=== PATIENT | female | born 1975 | race Caucasian/White ===

== ENCOUNTER 2016-11-16 19:00 | Emergency (ER) | payer OTHER ==
[2016-11-16 19:13] VITALS: BP 134/93; PULSE 63; TEMP 98.2; BMI 26.4
--- NOTE | 2016-11-16 19:21 | PDOC ---
History of Present Illness - History of Present Illness Initial Comments: 11/16/16 19:48 The patient is a 41 year old female, afebrile, with a significant past medical history of preeclampsia and hyperthyroid (taking levothyroxine 75mg), who presents to the emergency department for bumps at the back of the tongue for 3 days. The patient denies a sore throat or difficulty swallowing. She reports seeing a package line relief operator who told her she had an increased white blood cell count of 11.2 and prescribed Pantoprazole (40 mg QD). She states she was referred to see a GI specialist s/p discharge on medrol dose pack from an ER in [place] for chest pain, nausea and a rash on October 15, 2016. She denies any chest pain, rash, or nausea at this time. She states she is here to have the white blood cell count checked as per direction from the package line relief operator. The patient states she has an appointment for endoscopy next month. She denies chest pain, shortness of breath, headache and dizziness. She denies fever, chills, nausea, vomit, diarrhea and constipation. She denies dysuria, frequency, urgency and hematuria. Allergies: NKDA Past surgical history: cesarian (10/13/2014), hernia repair (age 5) Social history: former tobacco use ( pack for 2 years, 6 years ago) PCP - Dr. Lr <Ela Hall - Last Filed: 11/16/16 19:48> <Ashley Goodrich - Last Filed: 11/17/16 01:14> - General Chief Complaint: Sore Throat Stated Complaint: BUMPS ON BACK OF THROAT Time Seen by Provider: 11/16/16 19:16 Past History <Ela Hall - Last Filed: 11/16/16 19:48> - Past Medical History HTN: Yes Thyroid Disease: Yes - Psycho/Social/Smoking Cessation Hx Anxiety: No Suicidal Ideation: No Smoking History: Never smoked Have you smoked in the past 12 months: No Number of Cigarettes Smoked Daily: 0 Hx Alcohol Use: Yes (OCCASIONAL) Drug/Substance Use Hx: No Substance Use Type: None <Ashley Goodrich - Last Filed: 11/17/16 01:14> - Past Medical History Allergies/Adverse Reactions: Allergies Allergy/AdvReac Type Severity Reaction Status Date / Time doxycycline Allergy Unknown Verified 11/16/16 19:14 Home Medications: Ambulatory Orders Levothyroxine [Synthroid -] 75 mcg PO DAILY 11/16/16 Pantoprazole Sodium [Protonix] 40 mg PO DAILY PRN 11/16/16 Review of Systems - Review of Systems Able to Perform ROS?: Yes Comments:: 11/16/16 19:49 CONSTITUTIONAL: Absent: fever, no chills, no fatigue EYES: Absent: visual changes ENT: (+) bumps to posterior tongue. Absent: ear pain, no sore throat CARDIOVASCULAR: Absent: chest pain, no palpitations RESPIRATORY: Absent: cough, no SOB GI: Absent: abdominal pain, no nausea, no vomiting, no constipation, no diarrhea GENITOURINARY: Absent: dysuria, no frequency, no hematuria MUSKULOSKELETAL: Absent: back pain, no arthralgia, no myalgia SKIN: Absent: rash NEURO: Absent: headache <Ela Hall - Last Filed: 11/16/16 19:48> *Physical Exam - Vital Signs Last Vital Signs Temp Pulse Resp BP Pulse Ox 98.2 F 63 15 134/93 99 11/16/16 19:04 11/16/16 19:04 11/16/16 19:04 11/16/16 19:04 11/16/16 19:04 - Physical Exam Comments: 11/16/16 19:50 GENERAL: The patient is awake, alert, and fully oriented, in no acute distress. HEAD: Normal with no signs of trauma. EYES: Pupils equal, round and reactive to light, extraocular movements intact, sclera anicteric, conjunctiva clear with no pallor. ENT: Ears normal, nares patent, oropharynx clear without exudates. Moist mucous membranes. NECK: Normal range of motion, supple without lymphadenopathy, JVD, or masses. LUNGS: Breath sounds equal, clear to auscultation bilaterally. No wheeze/ crackles. HEART: Regular rate and rhythm, normal S1 and S2 without murmur or rub. ABDOMEN: Soft/nontender/nondistended. BS wnl. No guarding or rebound. No palpable masses. No hepatosplenomegaly. EXTREMITIES: Normal range of motion, no edema. No clubbing or cyanosis. No cords , erythema, or tenderness. NEUROLOGICAL: Cranial nerves II through XII grossly intact. Normal speech, normal gait. PSYCH: Normal mood, normal affect. SKIN: Warm, Dry, normal turgor, no rashes or lesions noted. <Ela Hall - Last Filed: 11/16/16 19:48> - Vital Signs Last Vital Signs Temp Pulse Resp BP Pulse Ox 98.2 F 63 15 134/93 99 11/16/16 19:04 11/16/16 19:04 11/16/16 19:04 11/16/16 19:04 11/16/16 19:04 <Ashley Goodrich - Last Filed: 11/17/16 01:14> Medical Decision Making - Medical Decision Making Documentation has been prepared under my direction and personally reviewed by me in its entirety. I attest that this documented accurately reflects all work, treatment, procedures and medical decision making performed by me. As noted above, this 41-year-old woman presents for evaluation of "bumps" in the posterior portion of her tongue. Patient noted this today and has not had no pain or other symptoms related to them. She had inspected the area closely because of a recent dental cleaning. Of note, the patient had received follow- up letter in the last few days from her package line relief operator noting that her white blood cell count was 11,200. This was seen on CBC taken during her gastroenterology appointment. Follow-up CBC was recommended. Patient specifically asked if CBC could be drawn. Exam as noted. There is no pathology evident with "bumps" being normal circumvallate taste buds. No evidence of pharyngitis/tonsillitis or other current inflammatory/infectious process. Since patient has no acute processes currently, CBC will not be drawn during this ER visit. Patient was reassured that the white blood cell count of 11,200 was not markedly elevated, although she should have the test repeated as per her package line relief operator recommendation. The patient has an internet media planner(Dr. Lr)but no general doctor. She asked for local general doctor and Dr. Vences referral information will be given to her. She should follow-up with one of these doctors in the near future. If she has any new severe symptoms, she should return to ER. <Ashley Goodrich - Last Filed: 11/17/16 01:14> *DC/Admit/Observation/Transfer - Attestations Scribe Attestion: 11/16/16 19:50 Documentation prepared by Ela Hall, acting as medical advisor for Ashley Goodrich MD <Ela Hall - Last Filed: 11/16/16 19:48> <Ashley Goodrich - Last Filed: 11/17/16 01:14> Diagnosis at time of Disposition: Hyperthyroidism - Discharge Dispostion Disposition: HOME Condition at time of disposition: Stable - Referrals Referrals: Bang Vences MD [Staff Physician] - 1 week - Patient Instructions Additional Instructions: Follow-up with Dr. Lr or Dr. Vences( general doctor) within one week Return to ER if you have fever/new rash/sore throat or cough
== END 2016-11-16 20:18 | disposition home or self-care (01) ==
LOC: FER 19:00
DX: E05.90 Thyrotoxicosis, unspecified without thyrotoxic crisis or storm (principal)
CPT/HCPCS: 99281-25

== ENCOUNTER 2016-11-24 21:33 | Emergency (ER) | payer OTHER ==
[2016-11-24 21:48] VITALS: BP 151/98; PULSE 69; TEMP 97.9; BMI 26.4
--- NOTE | 2016-11-24 22:02 | PDOC ---
History of Present Illness - General History Source: Patient Exam Limitations: No Limitations - History of Present Illness Initial Comments: 11/24/16 22:04 The patient is a 41 year old female, afebrile, with a significant past medical history of preeclampsia and hyperthyroid (taking levothyroxine 75mg), who presents to the emergency department for diffuse itching. Patient states that her warehouse operator gave her prednisone medication that helped her with her itching. She denies any obvious rash or hives. PAST MEDICAL HISTORY: no significant history PAST SURGICAL HISTORY: no significant history FAMILY HISTORY: no pertinent history SOCIAL HISTORY: Pt lives with family and is employed. MEDICATIONS: reviewed ALLERGIES: As per nursing notes General: No fevers or chills, no weakness, no weight loss HEENT: No change in vision. No sore throat, No ear pain CardioVascular: No chest pain or shortness of breath Respiratory:No cough, or wheezing. Gastrointestinal: no nausea, vomiting, diarrhea or constipation, No rectal bleeding Genitourinary: No dysuria, hematuria, or frequency Musculoskeletal: No joint or muscle pain or swelling Neurologic: No headache, vertigo, dizziness or loss of consciousness Psychiatric: nor depression Skin: (+)itching. No rashes or easy bruising Endocrine: no increased thirst or abnormal weight change Allergic: no skin or latex allergy All other systems reviewed and normal GENERAL: The patient is awake, alert, and fully oriented, in no acute distress. HEAD: Normal with no signs of trauma. EYES: Pupils equal, round and reactive to light, extraocular movements intact, sclera anicteric, conjunctiva clear. EXTREMITIES: Normal range of motion, no edema. NEUROLOGICAL: Normal speech, normal gait. PSYCH: Normal mood, normal affect. SKIN: Warm, Dry, normal turgor, no rashes or lesions noted. Documentation prepared by LEANDRA Bustmaante, acting as medical supply technician for Teresa Hwang MD. <Radha Suero - Last Filed: 11/24/16 22:04> - General History Source: Patient Exam Limitations: No Limitations <Teresa Hwang I - Last Filed: 11/24/16 22:13> - General Chief Complaint: Rash Stated Complaint: RASH Time Seen by Provider: 11/24/16 21:34 Past History <Radha Suero - Last Filed: 11/24/16 22:04> - Past Medical History Disorders: Yes (REFLUX) HTN: Yes Thyroid Disease: Yes - Psycho/Social/Smoking Cessation Hx Anxiety: No Suicidal Ideation: No Smoking History: Never smoked Have you smoked in the past 12 months: No Number of Cigarettes Smoked Daily: 0 Hx Alcohol Use: Yes (OCCASIONAL) Drug/Substance Use Hx: No Substance Use Type: None <Teresa Hwang I - Last Filed: 11/24/16 22:13> - Past Medical History Allergies/Adverse Reactions: Allergies Allergy/AdvReac Type Severity Reaction Status Date / Time doxycycline Allergy Unknown Verified 11/16/16 19:14 Home Medications: Ambulatory Orders Levothyroxine [Synthroid -] 75 mcg PO DAILY 11/16/16 Pantoprazole Sodium [Protonix] 40 mg PO DAILY PRN 11/16/16 Prednisone [Deltasone -] 40 mg PO DAILY #8 tablet 11/24/16 *Physical Exam - Vital Signs Last Vital Signs Temp Pulse Resp BP Pulse Ox 97.9 F 69 16 151/98 100 11/24/16 21:43 11/24/16 21:43 11/24/16 21:43 11/24/16 21:43 11/24/16 21:43 <Radha Suero - Last Filed: 11/24/16 22:04> - Vital Signs Last Vital Signs Temp Pulse Resp BP Pulse Ox 97.9 F 69 16 151/98 100 11/24/16 21:43 11/24/16 21:43 11/24/16 21:43 11/24/16 21:43 11/24/16 21:43 <Teresa Hwang I - Last Filed: 11/24/16 22:13> *DC/Admit/Observation/Transfer <Radha Suero - Last Filed: 11/24/16 22:04> - Discharge Dispostion Admit: No <Teresa Hwang I - Last Filed: 11/24/16 22:13> Diagnosis at time of Disposition: Urticaria - Discharge Dispostion Disposition: HOME Condition at time of disposition: Stable - Prescriptions Prescriptions: Prednisone [Deltasone -] 40 mg PO DAILY #8 tablet - Patient Instructions Additional Instructions: Take prednisone 2 tablets a day for the next 4 days in addition to that you can get [id number] Gilda or Claritin and take as directed on the box. Follow-up with an actuarial trainee for ALLERGY testing to see if you can determine what causing the itching Return to the emergency department immediately with ANY new, persistent or worsening symptoms. Continue any medications as previously prescribed by your physician. You should follow up with your primary doctor as soon as possible regarding today's emergency department visit. . Please make sure your doctor reviews the results of your emergency evaluation. Thank you for coming to the Emergency Department today for your care. It was a pleasure to see you today. Please note that your evaluation is INCOMPLETE until you follow-up with your doctor.
[2016-11-24] MEDS ORDERED: DEXAMETHASONE SOD PHOSPHATE 10 MG/1 ML VIAL IM ONE (22:05)
[2016-11-24] MEDS ORDERED: DEXAMETHASONE SOD PHOSPHATE 10 MG/1 ML VIAL ONE (22:08)
[2016-11-24] MEDS ORDERED: LORATADINE 10 MG TABLET PO ONE (22:11)
[2016-11-24] MEDS ORDERED: LORATADINE 10 MG TABLET ONE (22:15)
== END 2016-11-24 22:20 | disposition home or self-care (01) ==
LOC: FER 21:33
PROC: 3E023GC Introduction of Other Therapeutic Substance into Muscle, Percutaneous Approach (ICD-10-PCS; principal; 2016-11-24)
DX: L50.9 Urticaria, unspecified (principal); E05.90 Thyrotoxicosis, unspecified without thyrotoxic crisis or storm; I10 Essential (primary) hypertension; K21.9 Gastro-esophageal reflux disease without esophagitis
CPT/HCPCS: 99281-25

== ENCOUNTER 2017-06-20 21:02 | Emergency (ER) | payer OTHER ==
[2017-06-20 21:20] VITALS: BMI 26.8
--- NOTE | 2017-06-20 22:29 | PDOC ---
History of Present Illness - General Chief Complaint: Nausea/Vomiting Stated Complaint: VOMITING FOR 5-6 HOURS Time Seen by Provider: 06/20/17 22:03 History Source: Patient Exam Limitations: No Limitations - History of Present Illness Initial Comments: 06/20/17 22:40 This is a 41-year-old female brought in by her and 2 children for evaluation of nausea vomiting. As per patient her 2 children have also been vomiting over the last couple a days. Patient denies any abdominal pain at this pain times but said there was some initially some crampy abdominal pain. Patient denies any fevers. Patient is otherwise healthy. PAST MEDICAL HISTORY: no significant history PAST SURGICAL HISTORY: no significant history FAMILY HISTORY: no pertinant history SOCIAL HISTORY: Pt lives with family and is employed. MEDICATIONS: reviewed ALLERGIES: As per nursing notes Review of Systems General: No fevers or chills, no weakness, no weight loss HEENT: No change in vision. No sore throat,. No ear pain CardioVascular: No chest pain or shortness of breath Respiratory:No cough, or wheezing. Gastrointestinal: no nausea, vomitting, diarrhea or constipation, No rectal bleeding Genitourinary: No dysuria, hematuria, or frequency Musculoskeletal: No joint or muscle pain or swelling Neurologic: No headache, vertigo, dizziness or loss of consciousness Psychiatric: nor depression Skin: No rashes or easy bruising Endocrine: no increased thirst or abnormal weight change Allergic: no skin or latex allergy All other systems reviewed and normal Exam: General: Well-nourished well-developed individual, no acute distress, mucous membranes are dry HEENT: Throat: Normal, tonsils normal, no erythema or exudate Neck: Supple, no meningeal signs, no lymphadenopathy Eyes::Pupils equal reactive and round, extraocular motion intact Chest: Nontender to palpation Cardiac: S1-S2 normal, regular rate and rhythm, no murmurs rubs or gallops Respiratory: Lungs clear to auscultation bilateral Abdomen: Soft, nondistended, normal bowel sounds, nontender to palpation diffusely Extremities: Warm, dry, no cyanosis, clubbing, or edema Skin: No rashes Neuro: Alert and oriented x3, CN II - XII intact, nonfocal exam with normal strength, normal sensation, normal reflexes, normal gait, Psych: Normal mood and affect Medical decision making this is a 41-year-old female with vomiting and dehydration. Patient symptoms are consistent with the normal virus reaches circulating throughout the community in both of her children appear to have had similar symptoms recently Will give Zofran and hydrate patient with a minimum of 2 L of IV fluid Once patient is well-hydrated and able to tolerate by mouth's will discharged home 06/20/17 23:49 Reassessment patient has finished almost 1 L of fluid says she feels slightly better. There has been no further vomiting in the ED. 01:00 Patient has no further vomiting, patient now well-hydrated post 2 L of fluid. Patient discharged home. Prescription sent to patient's pharmacy. Past History - Past Medical History Allergies/Adverse Reactions: Allergies Allergy/AdvReac Type Severity Reaction Status Date / Time doxycycline Allergy Unknown Verified 06/20/17 21:05 Home Medications: Ambulatory Orders Levothyroxine [Synthroid -] 50 mcg PO DAILY 06/20/17 Ondansetron [Zofran Odt -] 4 mg SL TID #12 od.tablet 06/21/17 COPD: No Disorders: Yes (REFLUX) HTN: Yes Thyroid Disease: Yes - Suicide/Smoking/Psychosocial Hx Smoking History: Never smoked Have you smoked in the past 12 months: No Number of Cigarettes Smoked Daily: 0 Information on smoking cessation initiated: No Hx Alcohol Use: No Drug/Substance Use Hx: No Substance Use Type: None *Physical Exam - Vital Signs Last Vital Signs Temp Pulse Resp BP Pulse Ox 98.5 F 100 H 18 124/83 97 06/20/17 21:03 06/20/17 21:03 06/20/17 21:03 06/20/17 21:03 06/20/17 21:03 *DC/Admit/Observation/Transfer Diagnosis at time of Disposition: Dehydration Nausea and vomiting Qualifiers: Vomiting type: unspecified Vomiting Intractability: non-intractable Qualified Code(s): R11.2 - Nausea with vomiting, unspecified - Discharge Dispostion Disposition: HOME - Prescriptions Prescriptions: Ondansetron [Zofran Odt -] 4 mg SL TID #12 od.tablet - Referrals - Patient Instructions Printed Discharge Instructions: DI for Vomiting -- Adult Additional Instructions: Clear liquids only for the next 6 hours.. For nausea or vomiting takes Zofran 1 sublingual tablet as often as every 6-8 hours if needed After that if you have had no further vomiting you may have bananas, rice, applesauce, or toast. If no further vomiting for another 8 hours you may have regular food. If you vomit again then nothing to eat or drink for 2 hours. then start back with the clear liquids. Return to the emergency department immediately with ANY new, persistent or worsening symptoms. You MUST call and follow up with your doctor tomorrow if not better. Please make sure your doctor reviews the results of your emergency evaluation. - Post Discharge Activity
[2017-06-20] MEDS ORDERED: SODIUM CHLORIDE 1,000 ML IV ONE ×2 (22:31→23:05)
[2017-06-20] MEDS ORDERED: ONDANSETRON 4 MG/2 ML VIAL IVPB ONE (22:32)
[2017-06-20] MEDS ORDERED: ONDANSETRON 4 MG/2 ML VIAL ONE (22:56)
[2017-06-21 00:53] VITALS: BP 99/59; PULSE 82; TEMP 99.2
== END 2017-06-21 01:27 | disposition home or self-care (01) ==
LOC: FER 21:02
PROC: 3E033GC Introduction of Other Therapeutic Substance into Peripheral Vein, Percutaneous Approach (ICD-10-PCS; principal; 2017-06-20)
PROC: 3E0337Z Introduction of Electrolytic and Water Balance Substance into Peripheral Vein, Percutaneous Approach (ICD-10-PCS; 2017-06-20)
DX: E86.0 Dehydration (principal); R11.2 Nausea with vomiting, unspecified; I10 Essential (primary) hypertension; K21.9 Gastro-esophageal reflux disease without esophagitis; E07.9 Disorder of thyroid, unspecified
CPT/HCPCS: 99282-25

== ENCOUNTER 2017-06-29 14:50 | Emergency (ER) | payer OTHER ==
[2017-06-29 15:15] VITALS: BP 119/78; PULSE 90; BMI 26.8
[2017-06-29] MEDS ORDERED: ACETAMINOPHEN 1000 MG/100 ML VIAL (NON FORMULARY) IVPB ONE (16:21)
[2017-06-29] MEDS ORDERED: SODIUM CHLORIDE 1,000 ML IV STA (16:21)
[2017-06-29] MEDS ORDERED: METOCLOPRAMIDE HCL INJECTION 10 MG/2 ML VIAL IVPUSH ONE (16:22)
--- NOTE | 2017-06-29 16:23 | PDOC ---
History of Present Illness - History of Present Illness Initial Comments: 06/29/17 16:28 Patient is a 41F with PMHx of preeclampsia and hyperthyroidism, who presents today for headache and flu-like symptoms for 2 days. Patient states that she was here last week for a stomach virus. Her symptoms seemed to have resolved and then two days ago she began to experience a cold, cough, fever, and body aches. Around 2 am this morning she started experiencing an acute sudden onset headache that she describes as constant, throbbing. She admits to trouble opening her eyes due to her headache and states that she feels dizzy when she does open them. She took 2 Aleve for the pain 2.5 hours ago, with no relief. She also reports generalized weakness and nausea. She is currently menstruating. Denies any chance of . She denies abdominal pain, vomitting, and diarrhea. Allergies: NKDA Past surgical history: (10/13/2014), hernia repair (age 5) Social history: former tobacco use ( pack for 2 years, 7 years ago) PCP - Dr. rL <Sharyn Torres - Last Filed: 06/29/17 18:42> <Diego Elise - Last Filed: 06/29/17 19:19> - General Chief Complaint: Cold Symptoms Stated Complaint: FLU Time Seen by Provider: 06/29/17 15:40 Past History <Sharyn Torres - Last Filed: 06/29/17 18:42> - Past Medical History COPD: No Disorders: Yes (REFLUX) HTN: Yes Thyroid Disease: Yes - Suicide/Smoking/Psychosocial Hx Smoking History: Never smoked Have you smoked in the past 12 months: No Number of Cigarettes Smoked Daily: 0 Hx Alcohol Use: No Drug/Substance Use Hx: No Substance Use Type: None <Diego Elise - Last Filed: 06/29/17 19:19> - Past Medical History Allergies/Adverse Reactions: Allergies Allergy/AdvReac Type Severity Reaction Status Date / Time doxycycline Allergy Unknown Verified 06/20/17 21:05 Home Medications: Ambulatory Orders Levothyroxine [Synthroid -] 50 mcg PO DAILY 06/20/17 Ondansetron [Zofran Odt -] 4 mg SL TID #12 od.tablet 06/21/17 Ibuprofen 800 mg PO TID PRN #30 tablet 06/29/17 Metoclopramide HCl [Reglan -] 10 mg PO QID PRN #24 tablet 06/29/17 Review of Systems - Review of Systems Comments:: 06/29/17 16:28 CONSTITUTIONAL: Present: Fever, body aches, Generalized Weakness, Absent: Malaise, Loss of Appetite, diaphoresis. HEENT: Present: rhinnorhea, eye pain, Absent:Throat Pain, Throat Swelling, Difficulty Swallowing, Mouth Swelling, Ear Pain, Visual Changes CARDIOVASCULAR: Absent: Chest Pain, Syncope, Palpitations, Irregular Heart Rate, Lightheadedness , Peripheral Edema RESPIRATORY: Present: cough Absent: Shortness of Breath, SOB with Exertion, Orthopnea, Wheezing, Stridor, Hemoptysis GASTROINTESTINAL: Present: nausea Absent: Abdominal pain, Abdominal Distension, Vomiting, Diarrhea, Constipation, Melena, Hematochezia GENITOURINARY: Absent: Dysuria, Frequency, Urgency, Hesitancy, Flank Pain, Genital Pain MUSCULOSKELETAL: Absent: Myalgia, Arthralgia, Joint Swelling, Back pain, Neck Pain SKIN: Absent: Rash, Itching, Pallor HEMATOLOGIC/IMMUNOLOGIC: Absent: Easy Bleeding, Easy Bruising, Lymphadenopathy, Frequent infections ENDOCRINE: Absent: Unexplained Weight Gain, Unexplained Weight Loss, Heat Intolerance, Cold Intolerance NEUROLOGIC: Present: headache, vertigo Absent: Focal Weakness, Paresthesias, Unsteady Gait, Seizure, Mental Status Changes, Incontinence PSYCHIATRIC: Absent: Anxiety, Depression <Sharyn Torres - Last Filed: 06/29/17 18:42> *Physical Exam - Vital Signs Last Vital Signs Temp Pulse Resp BP Pulse Ox 100.5 F H 90 17 119/78 100 06/29/17 15:05 06/29/17 15:05 06/29/17 15:05 06/29/17 15:05 06/29/17 15:05 - Physical Exam Comments: 06/29/17 18:42 GENERAL: The patient is awake, alert, and fully oriented. Uncomfortable appearing. HEAD: Normal with no signs of trauma. EYES: Pupils equal, round and reactive to light, extraocular movements intact, sclera anicteric, conjunctiva clear. ENT: Ears normal, nares patent, oropharynx clear without exudates. Moist mucous membranes. NECK: No meningismus. Normal range of motion, supple without lymphadenopathy, JVD, or masses. LUNGS: Breath sounds equal, clear to auscultation bilaterally. No wheezes, and no crackles. HEART: Regular rate and rhythm, normal S1 and S2 without murmur, rub or gallop. ABDOMEN: Soft, nontender, normoactive bowel sounds. No guarding, no rebound. No masses. EXTREMITIES: Normal range of motion, no edema. No clubbing or cyanosis. No cords , erythema, or tenderness. NEUROLOGICAL: Cranial nerves II through XII grossly intact. Normal speech, normal gait. PSYCH: Normal mood, normal affect. SKIN: Warm, Dry, normal turgor, no rashes or lesions noted. <Sharyn Torres - Last Filed: 06/29/17 18:42> - Vital Signs Last Vital Signs Temp Pulse Resp BP Pulse Ox 100.5 F H 90 17 119/78 100 06/29/17 15:05 06/29/17 15:05 06/29/17 15:05 06/29/17 15:05 06/29/17 15:05 <Diego Elise - Last Filed: 06/29/17 19:19> ED Treatment Course - LABORATORY CBC & Chemistry Diagram: 06/29/17 16:45 06/29/17 16:45 <Sharyn Torres - Last Filed: 06/29/17 18:42> - LABORATORY CBC & Chemistry Diagram: 06/29/17 16:45 06/29/17 16:45 <Diego Elise - Last Filed: 06/29/17 19:19> Medical Decision Making - Medical Decision Making 06/29/17 19:13 Patient is a 41-year-old woman who presents complaining of stomach virus symptoms a few days ago which seemed to be resolving, but now with 24 hours of fever, chills, and bilateral temporal throbbing headache. There is no photophobia. There is no neck stiffness. She also complains of nausea. On examination, she has no photophobia or meningismus. Her lungs are clear. Her heart is regular rhythm. Her abdomen is benign. Her skin is without rash. Laboratory studies reviewed: CBC is normal. Hemoglobin is normal. She has mild hyponatremia, but she was given 1 L of IV normal saline. She is taking oral fluids well in the emergency department. After Benadryl, Reglan, and IV acetaminophen, her headache is much better. Repeat examination continues to reveal no photophobia or meningeal signs. Impression: Viral syndrome with headache. Laboratory Results - last 24 hr 06/29/17 06/29/17 06/29/17 16:45 16:45 18:19 WBC 3.7 L RBC 4.30 Hgb 12.7 Hct 36.1 MCV 84.0 MCH 29.4 MCHC 35.0 RDW 12.6 Plt Count 316 MPV 7.2 L Neutrophils % 79.4 Lymphocytes % 7.7 L Monocytes % 11.7 H Eosinophils % 0.2 Basophils % 1.0 Sodium 133 L Potassium 3.4 L Chloride 101 Carbon Dioxide 26 Anion Gap 6 L BUN 13 Creatinine 1.0 Creat Clearance w eGFR > 60 Random Glucose 94 Calcium 8.8 Total Bilirubin 0.5 AST 14 ALT 14 Alkaline Phosphatase 46 Total Protein 7.4 Albumin 4.5 Urine Color Yellow Urine Appearance Slightly Urine pH 6.0 Ur Specific [place] 1.010 Urine Protein Negative Urine Glucose (UA) Negative Urine Ketones 2+ H Urine Blood 3+ H Urine Nitrite Negative Urine Bilirubin Negative Urine Urobilinogen 0.2 Ur Leukocyte Esterase Trace H Urine RBC >100 Urine WBC 3-5 Ur Epithelial Cells 3-5 Urine HCG, Qual Negative 06/29/17 19:19 The scribe's documentation has been prepared under my direction and personally reviewed by me in its entirety. I have confirmed that the note above accurately reflects all work, treatment, procedures, and medical decision- making performed by me. <Diego Elise - Last Filed: 06/29/17 19:19> *DC/Admit/Observation/Transfer - Attestations Scribe Attestion: 06/29/17 16:31 Documentation prepared by Sharyn Torres, acting as medical stenographer for Diego Elise MD. <Sharyn Torres - Last Filed: 06/29/17 18:42> - Discharge Dispostion Admit: No <Diego Elise - Last Filed: 06/29/17 19:19> Diagnosis at time of Disposition: Viral infection Headache Qualifiers: Headache type: unspecified Headache chronicity pattern: acute headache Intractability: not intractable Qualified Code(s): R51 - Headache - Discharge Dispostion Disposition: HOME Condition at time of disposition: Good - Prescriptions Prescriptions: Ibuprofen 800 mg PO TID PRN #30 tablet PRN Reason: headache, pain or fever Metoclopramide HCl [Reglan -] 10 mg PO QID PRN #24 tablet PRN Reason: nausea or headache - Patient Instructions Printed Discharge Instructions: DI for Viral Upper Respiratory Infection -- Adult Additional Instructions: You were evaluated today for fever and headache. The blood tests were normal. The diagnosis is a viral infection with headache. Take ibuprofen and Reglan as needed for headache. Drink plenty of fluids. Follow-up with her primary care physician. Return to the emergency department for any severe or progressive symptoms.
[2017-06-29] MEDS ORDERED: ACETAMINOPHEN INJECTION 100 ML IVPB ONE (16:25)
[2017-06-29 17:04] LABS: EOS % 0.2 % (0-4.5); HEMATOCRIT 36.1 % (32.4-45.2); HEMOGLOBIN 12.7 GM/dl (10.7-15.3); LYMPH % 7.7 % (8-40); MCH 29.4 pg (25.7-33.7); MEAN PLT VOLUME 7.2 fl (7.5-11.1); MONO % 11.7 % (3.8-10.2); NEUT % 79.4 % (42.8-82.8); PLATELET COUNT 316 K/MM3 (134-434); RDW 12.6 % (11.6-15.6); WHITE BLOOD COUNT 3.7 K/mm3 (4.0-10.8)
[2017-06-29 17:15] LABS: ALBUMIN 4.5 g/dl (3.5-5.0); ALK PHOS 46 U/L (32-92); ANION GAP 6 (8-16); BLOOD UREA NITROGEN 13 mg/dl (7-18); CALCIUM 8.8 mg/dl (8.4-10.2); CHLORIDE 101 mmol/L (98-107); CO2 26 mmol/L (22-28); GLUCOSE,RANDOM 94 mg/dl (74-106); POTASSIUM 3.4 mmol/L (3.5-5.1); SGOT/AST 14 U/L (10-42); SGPT/ALT 14 U/L (10-40); SODIUM 133 mmol/L (136-145); TOT PROT 7.4 g/dl (6.4-8.3)
[2017-06-29 17:28] LABS: BILIRUBIN,TOTAL 0.5 mg/dl (0.2-1.0)
[2017-06-29 18:19] VITALS: TEMP 99.9
[2017-06-29 18:24] LABS: URINE APPEARANCE Slightly; URINE BILIRUBIN Negative (NEGATIVE); URINE BLOOD 3+ (NEGATIVE); URINE COLOR YELLOW; URINE GLUCOSE (UA) Negative (NEGATIVE); URINE KETONE 2+ (NEGATIVE); URINE LEUK ESTERASE TRACE (NEGATIVE); URINE NITRITE Negative (NEGATIVE); URINE PROTEIN Negative (NEGATIVE); URINE UROBILINOGEN 0.2 (0.2-1.0)
[2017-06-29 18:25] LABS: HCG,QUALITATIVE URINE NEGATIVE
[2017-06-29 18:40] LABS: URINE RBC >100 /hpf (0-3)
[2017-06-29] MEDS ORDERED: IBUPROFEN 600 MG TABLET (FP) PO ONE ×2 (19:39→19:44)
[2017-06-29] MEDS ORDERED: METOCLOPRAMIDE HCL 10 MG TABLET (FP) PO ONE ×2 (19:39→19:44)
== END 2017-06-29 19:51 | disposition home or self-care (01) ==
LOC: FER 14:50
PROC: 3E033NZ Introduction of Analgesics, Hypnotics, Sedatives into Peripheral Vein, Percutaneous Approach (ICD-10-PCS; principal; 2017-06-29)
PROC: 3E033GC Introduction of Other Therapeutic Substance into Peripheral Vein, Percutaneous Approach (ICD-10-PCS; 2017-06-29)
PROC: 3E0337Z Introduction of Electrolytic and Water Balance Substance into Peripheral Vein, Percutaneous Approach (ICD-10-PCS; 2017-06-29)
DX: B34.9 Viral infection, unspecified (principal); R51 Headache; I10 Essential (primary) hypertension; K21.9 Gastro-esophageal reflux disease without esophagitis
CPT/HCPCS: 36415; 80053; 81003; 81015; 84703; 85025; 99282-25

== ENCOUNTER 2020-08-20 18:44 | Emergency (ER) | payer OTHER ==
[2020-08-20 19:05] VITALS: BP 140/90; PULSE 77; TEMP 99.2; BMI 26.4
== END 2020-08-20 19:54 | disposition home or self-care (01) ==
LOC: FER 18:44
DX: M79.672 Pain in left foot (principal)
CPT/HCPCS: 73630-TC-LT; 99284-25

== ENCOUNTER 2020-12-15 23:19 | Emergency (ER) | payer OTHER ==
[2020-12-15 23:33] VITALS: BP 155/95; PULSE 62; TEMP 98.2; BMI 28.3
[2020-12-15] MEDS ORDERED: DEXAMETHASONE SOD PHOSPHATE 10 MG/1 ML VIAL IVPUSH ONE (23:53)
[2020-12-15] MEDS ORDERED: DEXAMETHASONE SOD PHOSPHATE 10 MG/1 ML VIAL IM ONE (23:54)
[2020-12-16] MEDS ORDERED: DEXAMETHASONE SOD PHOSPHATE 10 MG/1 ML VIAL ONE (00:04)
== END 2020-12-16 00:15 | disposition home or self-care (01) ==
LOC: FER 23:19
PROC: 3E033NZ Introduction of Analgesics, Hypnotics, Sedatives into Peripheral Vein, Percutaneous Approach (ICD-10-PCS; principal; 2020-12-15)
PROC: 3E023NZ Introduction of Analgesics, Hypnotics, Sedatives into Muscle, Percutaneous Approach (ICD-10-PCS; 2020-12-15)
DX: L50.9 Urticaria, unspecified (principal)
CPT/HCPCS: 99284-25; J1100

== ENCOUNTER 2022-05-06 10:45 | Emergency (ER) | payer OTHER ==
[2022-05-06 11:00] VITALS: BP 145/98; PULSE 79; RESP 18; TEMP 97.8; BMI 27.9
[2022-05-06] MEDS ORDERED: METOCLOPRAMIDE HCL 10 MG TABLET (FP) PO ONE ×2 (11:42→11:43)
[2022-05-06] MEDS ORDERED: ACETAMINOPHEN 325 MG TABLET (FP) PO ONE (11:42)
[2022-05-06] MEDS ORDERED: ACETAMINOPHEN 325 MG TABLET (FP) ONE (11:43)
== END 2022-05-06 13:59 | disposition home or self-care (01) ==
LOC: FER 10:45
DX: J09.X2 Influenza due to identified novel influenza A virus with other respiratory manifestations (principal); R05.1 Acute cough; R51.9 Headache, unspecified
CPT/HCPCS: 0241U-QW; 71046-TC-FY; 99284-25

== ENCOUNTER 2022-08-27 06:25 | Day surgery (SDC) | payer OTHER ==
[2022-08-24 11:17] VITALS: BMI 28.3
[2022-08-27] MEDS ORDERED: SODIUM CHLORIDE 0.9% P/F 10 ML VIAL IJ ONE (07:18)
[2022-08-27] MEDS ORDERED: ceFAZolin SODIUM 1 GM VIAL ONE ×2 (07:18→07:26)
[2022-08-27] MEDS ORDERED: LIDOCAINE HCL/PF 2% SDV 5ML VIAL ONE (07:18)
[2022-08-27] MEDS ORDERED: DEXAMETHASONE SOD PHOSPHATE 4 MG/1 ML VIAL ONE (07:19)
[2022-08-27] MEDS ORDERED: ROCURONIUM BROMIDE 50 MG/5 ML SYRINGE ONE (07:19)
[2022-08-27] MEDS ORDERED: PROPOFOL 40 ML ONE (07:20)
[2022-08-27] MEDS ORDERED: MIDAZOLAM HCL 2 MG/2 ML SINGLE DOSE VIAL ONE (07:24)
[2022-08-27] MEDS ORDERED: SUGAMMADEX SODIUM 200 MG/2 ML VIAL ONE (07:57)
[2022-08-27] MEDS ORDERED: ONDANSETRON 4 MG/2 ML VIAL ONE (07:57)
[2022-08-27] MEDS ORDERED: BUPIVACAINE HCL/PF 0.5% (5MG/ML) 10 ML VIAL ONE (08:08)
[2022-08-27] MEDS ORDERED: NITROGLYCERIN 2% OINTMENT - 1GM PACKET TD ONE (08:09)
[2022-08-27] MEDS ORDERED: BACITRACIN ZINC 15 GM TUBE TOPICAL OINTMENT ONE (08:09)
[2022-08-27] MEDS ORDERED: HYDROmorphone HCL/PF 1 MG/ML VIAL ONE (08:43)
[2022-08-27] MEDS ORDERED: PROPOFOL 20 ML ONE (10:05)
[2022-08-27] MEDS ORDERED: ePHEDrine SULFATE 50 MG/1 ML AMPULE ONE (10:29)
[2022-08-27] MEDS ORDERED: oxyCODONE HCL 5 MG TABLET PO PRN ×2 (11:43)
[2022-08-27] MEDS ORDERED: LACTATED RINGERS SOLUTION 1,000 ML IV SCH ×2 (11:45→12:00)
[2022-08-27] MEDS ORDERED: ONDANSETRON 4 MG/2 ML VIAL IVPUSH PRN (11:46)
[2022-08-27] MEDS ORDERED: ACETAMINOPHEN 1000 MG/100 ML BAG IVPB ONE (11:47)
[2022-08-27] MEDS ORDERED: FENTANYL CITRATE/PF 50 MCG/ML VIAL ONE ×3 (11:52→12:41)
[2022-08-27] MEDS ORDERED: PROMETHAZINE HCL 25 MG/1 ML VIAL IVPB PRN (11:57)
[2022-08-27] MEDS ORDERED: PROMETHAZINE HCL 25 MG/1 ML VIAL ONE (12:08)
[2022-08-27 16:03] VITALS: BP 109/71; PULSE 94; RESP 20; TEMP 97.6
[2022-08-27] MEDS ORDERED: ONDANSETRON 4 MG/2 ML VIAL IVPB PRN (17:48)
== END 2022-08-27 15:55 | disposition home or self-care (01) ==
LOC: FASU 06:25
PROVIDERS: ATTEND Plastic Surgery
PROC: 0HBV0ZZ Excision of Bilateral Breast, Open Approach (ICD-10-PCS; principal; 2022-08-27 08:35)
DX: N62 Hypertrophy of breast (principal)
CPT/HCPCS: 81025; 88305-TC; 94760

== ENCOUNTER 2022-09-07 21:44 | Emergency (ER) | payer OTHER ==
[2022-09-07 21:50] VITALS: BP 135/90; PULSE 69; RESP 16; TEMP 98.1; BMI 28.3
[2022-09-07] MEDS ORDERED: FLUCONAZOLE 150 MG TABLET PO ONE ×3 (22:21→22:35)
== END 2022-09-07 22:53 | disposition home or self-care (01) ==
LOC: FER 21:44
DX: R21 Rash and other nonspecific skin eruption (principal); K59.00 Constipation, unspecified; B37.89 Other sites of candidiasis
CPT/HCPCS: 99283-25

== ENCOUNTER 2024-02-10 18:13 | Emergency (ER) | payer OTHER ==
[2024-02-10 18:38] VITALS: BP 124/78; PULSE 83; RESP 18; TEMP 98.9; BMI 28.3
[2024-02-10 19:33] LABS: HEMATOCRIT 39.7 % (32.4-45.2); HEMOGLOBIN 13.2 G/dL (10.7-15.3); MCH 30.4 pg (25.7-33.7); MCHC 33.3 g/dl (32.0-36.0); MEAN CELL VOLUME 91.3 fl (80-96); MEAN PLT VOLUME 7.4 fl (7.5-11.1); PLATELET COUNT 299.8 10^3/uL (134-434); RBC 4.35 10^6/uL (3.60-5.2); RDW 13.9 % (11.6-15.6); WHITE BLOOD COUNT 9.5 10^3/uL (4.0-10.8)
[2024-02-10] MEDS ORDERED: IBUPROFEN 600 MG TABLET (FP) PO ONE (19:33)
[2024-02-10] MEDS: IBUPROFEN 600 MG TABLET (FP) PO ONE (19:34)
[2024-02-10 19:53] LABS: ALBUMIN 4.7 g/dl (3.4-5.0); BILIRUBIN,TOTAL 0.4 mg/dl (0.2-1); CALCIUM 9.3 mg/dl (8.5-10.1); CREATININE 1.1 mg/dl (0.6-1.3); TOT PROT 6.9 g/dl (6.4-8.2)
[2024-02-10] MEDS ORDERED: ALBUTEROL SO4 HFA INHALER IH ONE (20:20)
[2024-02-10] MEDS: ALBUTEROL SO4 HFA INHALER IH ONE (20:23)
[2024-02-10] MEDS ORDERED: DEXAMETHASONE 4 MG TABLET (FP) PO ONE (20:23)
[2024-02-10] MEDS ORDERED: DEXAMETHASONE 4 MG TABLET (FP) ONE (20:24)
[2024-02-10 20:32] LABS: PLATELET ESTIMATE ADEQUATE
[2024-02-10] MEDS ORDERED: ALBUTEROL SO4 2.5/IPRATROPIUM 0.5 INH SOL 3 ML VIAL.NEB. NEB ONE (20:49)
[2024-02-10] MEDS: ALBUTEROL SO4 2.5/IPRATROPIUM 0.5 INH SOL 3 ML VIAL.NEB. NEB ONE (20:50)
== END 2024-02-10 21:05 | disposition home or self-care (01) ==
LOC: FER 18:13
PROC: 3E0F7GC Introduction of Other Therapeutic Substance into Respiratory Tract, Via Natural or Artificial Opening (ICD-10-PCS; principal; 2024-02-10)
DX: M94.0 Chondrocostal junction syndrome [Tietze] (principal); Z20.822 Contact with and (suspected) exposure to COVID-19
CPT/HCPCS: 0241U-QW; 36415; 71046-TC-FY; 80053; 84484; 84703; 85027; 93005; 93010; 99285-25